=== PATIENT | female | born 1985 | race Caucasian/White ===

== ENCOUNTER 2016-02-16 11:45 | Observation (INO) | payer MEDICAID ==
[~2016-02-16] VITALS: Ht 162.6 cm; Wt 77.5 kg
[2016-02-16] VITALS (9 sets, daily range): BP systolic 100–149; BP diastolic 61–88; PULSE 63–115; RESP 14–18; TEMP 97.9–98.1; O2SAT 96–100
[~2016-02-16 11:45] MED LIST: CIPR0.3S RIGHT EAR; DULE200A INH; EPIP0.3I IM; FLUT1SPR9 EACH NARE; GEOD80CA PO; MIRA33504 PO; PROT40TA PO; VIST50CA PO
[2016-02-16] MEDS ORDERED: SODIUM CHLOR 0.9% 1000 ML INJ 1,000 ML IV SCH (12:07)
--- NOTE | 2016-02-16 12:12 | PD ---
HPI Chief Complaint: Abdominal Pain Time Seen by Provider: 12:03 Travel History International Travel<30 days: No Contact w/Intl Traveler<30days: No Traveled to known affect area: No History of Present Illness HPI 30-year-old female complains of right upper quadrant abdominal pain. Patient states that the pain started 2 days ago. Patient states the pain is sharp severe pain localized to right upper quadrant of the abdomen. Patient denies any pain radiation. Patient denies any nausea vomiting diarrhea. Patient denies any fever chills. Patient denies any dysuria or frequency. Patient denies any vaginal discharge or bleeding. On a scale of 1-10 the pain is a 5. PFSH Past Medical History Hx Anticoagulant Therapy: No Asthma: Yes Blood Disorders: No Bipolar Disorder: Yes Depression: Yes Cancer: No Cardiovascular Problems: No Chemotherapy: No Cerebrovascular Accident: No Diabetes: No Diminished Hearing: No Endocrine: No Gastrointestinal Disorders: No Genitourinary: No Headaches: No Immune Disorder: No Musculoskeletal: No Psychiatric: Yes Respiratory: No Immunizations Current: Yes Migraines: No Seizures: No Menopausal: No : 1 Para: 1 Tubal Ligation: Yes Past Surgical History Abdominal Surgery: No Cardiac Surgery: No Ear Surgery: No Endocrine Surgery: No Eye Surgery: No Genitourinary Surgery: No Gynecologic Surgery: Yes (TUBAL LIGATION MARCH 2008) Hysterectomy: No Neurologic Surgery: Yes (hydrocephalus/shunt-revised 2006) Oral Surgery: No Thoracic Surgery: No Other Surgery: Yes Social History Alcohol Use: No Tobacco Use: Yes (states 2 cigarette per day) Substance Use: No Allergies-Medications (Allergen,Severity, Reaction): Coded Allergies: Doxycycline (Verified Allergy, Severe, NAUSEA/rash, 02/16/16) Bactrim (Verified Adverse Reaction, Severe, N/V Rash, 02/16/16) Penicillin (Verified Adverse Reaction, Severe, EMESIS/Rash, 02/16/16) Reported Meds & Prescriptions Reported Meds & Active Scripts Active Protonix (Pantoprazole Sodium) 40 Mg Tab 40 Mg PO DAILY Reported Geodon (Ziprasidone) 80 Mg Cap 80 Mg PO HS Vistaril (Hydroxyzine Pamoate) 50 Mg Cap 50 Mg PO HS Review of Systems General / Constitutional: No: Fever Eyes: No: Visual changes HENT: No: Headaches Cardiovascular: No: Chest Pain or Discomfort Respiratory: No: Shortness of Breath Gastrointestinal: Positive: Abdominal Pain Genitourinary: No: Dysuria Musculoskeletal: No: Pain Skin: No Rash Neurologic: No: Weakness Psychiatric: No: Depression Endocrine: No: Polydipsia Hematologic/Lymphatic: No: Easy Bruising Physical Exam Narrative GENERAL: Well-nourished, well-developed patient. SKIN: Warm and dry. HEAD: Normocephalic. EYES: No scleral icterus. No injection or drainage. NECK: Supple, trachea midline. No JVD or lymphadenopathy. CARDIOVASCULAR: Regular rate and rhythm without murmurs, gallops, or rubs. RESPIRATORY: Breath sounds equal bilaterally. No accessory muscle use. GASTROINTESTINAL: Abdomen soft, nondistended. Patient has moderate tenderness on palpation right upper quadrant of the abdomen. No rebound tenderness. No mass. MUSCULOSKELETAL: No cyanosis, or edema. BACK: Nontender without obvious deformity. No CVA tenderness. Neurologic exam normal. Data Data Last Documented VS Vital Signs Date Time Temp Pulse Resp B/P Pulse Ox O2 Delivery O2 Flow Rate FiO2 02/16/16 13:00 68 17 112/69 02/16/16 12:00 96 02/16/16 11:46 98.1 Room Air Orders Complete Blood Count With Diff (02/16/16 12:07) Comprehensive Metabolic Panel (02/16/16 12:07) Lipase (02/16/16 12:07) Prothrombin Time / Inr (Pt) (02/16/16 12:07) Act Partial Throm Time (Ptt) (02/16/16 12:07) Urinalysis - C+S If Indicated (02/16/16 12:07) Ct Abd/Pel W Iv Contrast(Rout) (02/16/16 12:07) Iv Access Insert/Monitor (02/16/16 12:07) Ecg Monitoring (02/16/16 12:07) Oximetry (02/16/16 12:07) Morphine Inj (Morphine Inj) (02/16/16 12:15) Ondansetron Inj (Zofran Inj) (02/16/16 12:15) Pantoprazole Inj (Protonix Inj) (02/16/16 12:15) Sodium Chlor 0.9% 1000 Ml Inj (Ns 1000 M (02/16/16 12:07) Ed Urine Pregnancytest Poc (02/16/16 12:07) Iohexol 350 Inj (Omnipaque 350 Inj) (02/16/16 14:12) Labs Laboratory Tests Test 02/16/16 12:00 White Blood Count 9.1 TH/MM3 Red Blood Count 5.17 MIL/MM3 Hemoglobin 15.9 GM/DL Hematocrit 45.8 % Mean Corpuscular Volume 88.6 FL Mean Corpuscular Hemoglobin 30.8 PG Mean Corpuscular Hemoglobin 34.8 % Concent Red Cell Distribution Width 12.2 % Platelet Count 348 TH/MM3 Mean Platelet Volume 8.4 FL Neutrophils (%) (Auto) 69.3 % Lymphocytes (%) (Auto) 23.6 % Monocytes (%) (Auto) 5.3 % Eosinophils (%) (Auto) 1.4 % Basophils (%) (Auto) 0.4 % Neutrophils # (Auto) 6.3 TH/MM3 Lymphocytes # (Auto) 2.2 TH/MM3 Monocytes # (Auto) 0.5 TH/MM3 Eosinophils # (Auto) 0.1 TH/MM3 Basophils # (Auto) 0.0 TH/MM3 CBC Comment DIFF FINAL Differential Comment Urine Color LIGHT-YELLOW Urine Turbidity HAZY Urine pH 6.5 Urine Specific [place] 1.004 Urine Protein NEG mg/dL Urine Glucose (UA) NEG mg/dL Urine Ketones NEG mg/dL Urine Occult Blood SMALL Urine Nitrite NEG Urine Bilirubin NEG Urine Urobilinogen LESS THAN 2.0 MG/DL Urine Leukocyte Esterase SMALL Urine RBC 3 /hpf Urine WBC 3 /hpf Urine Squamous Epithelial 4 /hpf Cells Urine Amorphous Sediment RARE Urine Bacteria RARE /hpf Microscopic Urinalysis Comment CULT NOT INDICATED Sodium Level 136 MEQ/L Potassium Level 4.5 MEQ/L Chloride Level 106 MEQ/L Carbon Dioxide Level 25.2 MEQ/L Anion Gap 5 MEQ/L Blood Urea Nitrogen 10 MG/DL Creatinine 0.88 MG/DL Estimat Glomerular Filtration 75 ML/MIN Rate Random Glucose 97 MG/DL Calcium Level 10.0 MG/DL Total Bilirubin 0.7 MG/DL Aspartate Amino Transf 50 U/L (AST/SGOT) Alanine Aminotransferase 37 U/L (ALT/SGPT) Alkaline Phosphatase 84 U/L Total Protein 8.8 GM/DL Albumin 4.6 GM/DL Lipase 64 U/L [facility] Medical Decision Making Medical Screen Exam Complete: Yes Emergency Medical Condition: Yes Interpretation(s) [address] scan abdomen pelvis show cholelithiasis. No evidence of cholecystitis cystitis. CBC within normal limit. CMP with AST 50. Differential Diagnosis Differential diagnosis including PUD, pancreatitis, cholecystitis, colitis, UTI , pyelonephritis, nephrolithiasis. Narrative Course 30-year-old female with right upper quadrant abdominal pain. Normal saline solution 1 25 cc an hour. Protonix 40 mg IV. Morphine 2 mg IV. Zofran 4 mg IV. Diagnosis Primary Impression: Cholelithiasis Qualified Code: K80.20 - Calculus of gallbladder without cholecystitis without obstruction Chris Cabral MD Feb 16, 2016 12:12
[2016-02-16] MEDS ORDERED: ONDANSETRON HCL 4 MG/2 ML VIAL IVP ONE (12:15)
[2016-02-16] MEDS ORDERED: MORPHINE SULFATE 4 MG/ML INJ IV PUSH ONE (12:15)
[2016-02-16] MEDS ORDERED: PANTOPRAZOLE SODIUM 40 MG VIAL IVP ONE (12:15)
[2016-02-16 12:39] LABS: BACTERIA, URINE RARE /hpf; BLOOD, URINE SMALL (NEG); GLUCOSE,URINE NEG (NEG); KETONE, URINE NEG (NEG); NITRITE,URINE NEG (NEG); PH, URINE 6.5 (5.0-8.5); SQUAMOUS EPITHELIAL CELL URINE 4 /hpf (0-5); URINE COLOR LIGHT-YELLOW (YELLW/STRAW)
[2016-02-16 12:42] LABS: COMMENT (UR) CULT NOT INDICATED; CULTURE IF INDICATED CULT NOT INDICATED
[2016-02-16 13:00] LABS: AUTOMATED NEUTROPHIL # 6.3 TH/MM3 (1.8-7.7); BASOPHIL % 0.4 % (0.0-2.0); EOSINOPHIL # 0.1 TH/MM3 (0-0.4); EOSINOPHIL % 1.4 % (0.0-4.0); HEMATOCRIT 45.8 % (35.0-46.0); HEMO FLAGS DIFF FINAL; LYMPH % 23.6 % (9.0-44.0); LYMPHOCYTE # 2.2 TH/MM3 (1.0-4.8); MEAN CELL VOLUME 88.6 FL (80.0-100.0); MEAN CORPUSCULAR HEMOGLOBIN 30.8 PG (27.0-34.0); MEAN CORPUSCULAR HGB CONC 34.8 % (32.0-36.0); MONO % 5.3 % (0.0-8.0); NEUT % 69.3 % (16.0-70.0); PLATELET COUNT 348 TH/MM3 (150-450); RED BLOOD COUNT 5.17 MIL/MM3 (4.00-5.30); RED CELL DISTRIBUTION WIDTH 12.2 % (11.6-17.2); WHITE BLOOD COUNT 9.1 TH/MM3 (4.0-11.0)
[2016-02-16 13:26] LABS: ALKALINE PHOSPHATASE 84 U/L (45-117); TOTAL BILIRUBIN ADULT 0.7 MG/DL (0.2-1.0)
[2016-02-16 13:31] LABS: ALT (GPT) 37 U/L (10-53); ANION GAP 5 MEQ/L (5-15); AST (GOT) 50 U/L (15-37); BICARBONATE 25.2 MEQ/L (21.0-32.0); BLOOD UREA NITROGEN 10 MG/DL (7-18); CHLORIDE 106 MEQ/L (98-107); GLOMERULAR FILTRATION RATE 75 ML/MIN (>89); SODIUM (NA) 136 MEQ/L (136-145)
[2016-02-16 13:34] LABS: POTASSIUM 4.5 MEQ/L (3.5-5.1)
[2016-02-16] MEDS ORDERED: IOHEXOL 350 MG/ML 10 ML VIAL (for RAD DIAG) IV ONE (14:12)
--- NOTE | 2016-02-16 14:37 | RADRPT ---
EXAM DATE/TIME: 02/16/2016 14:09 [place] COMPARISON: No previous studies available for comparison. INDICATIONS : Right upper quadrant pain x 2 days. IV CONTRAST: 93 cc Omnipaque 350 (iohexol) IV ORAL CONTRAST: No oral contrast ingested. RADIATION DOSE: 7.08 CTDIvol (mGy) MEDICAL HISTORY : Hydrocephalus. Asthma. SURGICAL HISTORY : Tubal ligation. AV Shunt. ENCOUNTER: Initial ACUITY: 3 days PAIN SCALE: 5/10 LOCATION: Right upper quadrant TECHNIQUE: Volumetric scanning of the abdomen and pelvis was performed. Using automated exposure control and ad justment of the mA and/or kV according to patient size, radiation dose was kept as low as reasonably achievable to obtain optimal diagnostic quality images. FINDINGS: LOWER LUNGS: The visualized lower lungs are clear. LIVER: Homogeneous density without lesion. There is no dilation of the biliary tree. The gallbladder is con tracted around multiple stones within the bladder lumen. No evidence of wall thickening or adjacent f luid.SPLEEN: Normal size without lesion. PANCREAS: Within normal limits. KIDNEYS: Normal in size and shape. There is no mass, stone or hydronephrosis. ADRENAL GLANDS: Within normal limits. VASCULAR: There is no aortic aneurysm. BOWEL/MESENTERY: The stomach, small bowel, and colon demonstrate no acute abnormality. There is no free intraperitone al air or fluid. ABDOMINAL WALL: Within normal limits. There is tubing identified extending from the anterior abdominal wall to the pe lvis consistent with STEEL DIE ENGRAVER shunt. RETROPERITONEUM: There is no lymphadenopathy. BLADDER: No wall thickening or mass. REPRODUCTIVE: Within normal limits. INGUINAL: There is no lymphadenopathy or hernia. MUSCULOSKELETAL: Within normal limits for patient age. CONCLUSION: Cholelithiasis. No CT evidence of cholecystitis.. Mesha Roberts MD on February 16, 2016 at 14:32 Board Certified Radiologist. This report was verified electronically.
[2016-02-16] MEDS ORDERED: SODIUM CHLORIDE 0.9% FLUSH 5 ML FLUSH IV FLUSH PRN (17:30)
[2016-02-16] MEDS ORDERED: ONDANSETRON HCL 4 MG/2 ML VIAL IV PUSH PRN (17:30)
[2016-02-16] MEDS ORDERED: ONDANSETRON HCL 4 MG/2 ML VIAL IV PRN (17:30)
[2016-02-16] MEDS ORDERED: SODIUM CHLORIDE 0.9% FLUSH 5 ML FLUSH IVF PRN (17:30)
[2016-02-16] MEDS ORDERED: ACETAMINOPHEN 325 MG TAB PO PRN (17:30)
[2016-02-16] MEDS: SODIUM CHLOR 0.9% 1000 ML INJ 1,000 ML IV SCH (19:56)
[2016-02-16] MEDS: LEVOFLOXACIN 500 MG PREMIX INJ 100 ML IV SCH (19:56)
[2016-02-16] MEDS: metroNIDAZOLE 500 MG INJ 100 ML IV SCH (20:00)
[2016-02-16] MEDS: MORPHINE SULFATE 4 MG/ML INJ IV PUSH PRN (20:06)
[2016-02-16] MEDS ORDERED: SODIUM CHLORIDE 0.9% FLUSH 5 ML FLUSH IV FLUSH SCH (21:00)
[2016-02-16] MEDS: SODIUM CHLORIDE 0.9% FLUSH 5 ML FLUSH IVF SCH (21:00)
--- NOTE | 2016-02-16 23:11 | MH ---
cc: HAILEY YANG MD DATE OF ADMISSION: 02/16/2016 CHIEF COMPLAINT Symptomatic cholelithiasis, cholecystitis. HISTORY OF PRESENT ILLNESS The patient is a 30-year-old female who presents with right upper quadrant abdominal pain. She states the pain started approximately 2 days ago, sharp, localized to the right upper quadrant, 7 out of 10, improved with IV pain medications to 2 out of 10. She states she has never had this pain before. It is worse with palpation and better with lying still. She denies any associated nausea and vomiting or any fever or chills. She came to the emergency room for further evaluation and further workup. CT scan showed multiple gallbladder stones with some thickening. Therefore, general surgery was consulted for further evaluation. On examination the patient is resting comfortable. She says she does have significant right upper quadrant pain and reiterates that she has never had this before. She further denies jaundice, scleral icterus or change in bowel habits. PAST MEDICAL HISTORY Asthma, bipolar, depression, hydrocephalus. PAST SURGICAL HISTORY Tubal ligation, shunt for hydrocephalus. SOCIAL HISTORY Positive smoking two cigarettes per day. Denies ETOH or IVDA. ALLERGIES DOXYCYCLINE, BACTRIM, PENICILLIN. MEDICATIONS See EMR. FAMILY HISTORY Denies hypertension or diabetes. REVIEW OF SYSTEMS General: Denies fever, chills. HEENT: Denies eye pain, ear pain or scleral icterus. Cardiovascular: Denies chest pain or palpitations. Respiratory: Denies cough or shortness of breath. GI: Complains of abdominal pain. Denies nausea, vomiting. : Denies dysuria, hematuria. Musculoskeletal: Denies arthralgias, myalgias. Skin: Denies rashes or lesions. Neurologic: Denies weakness or numbness. Psychiatric: Denies change in sensorium or mood. Endocrine: Denies polyuria, polydipsia. : Denies dysuria, hematuria. Hematologic: Denies easy bruising or lymphadenopathy. PHYSICAL EXAMINATION General: The patient is in no acute distress. Vital signs: Temperature 98.1, pulse 68, respirations 17, blood pressure 112/69, 96% saturation on room air. HEENT: PERRLA, EOMI. No scleral icterus. Pupils equal, and reactive. Neck: Supple. Trachea midline. Cardiovascular: Regular rate and rhythm, S1-S2. Respiratory: Bilateral expansion. Bilateral breath sounds. GI: Soft abdomen. Positive tenderness to palpation right upper quadrant. No rebound. Musculoskeletal: No edema, well perfused, warm. Neurologic: GCS of 15, LABORATORY DIAGNOSTIC DATA WBC 9.1, hemoglobin 15.9, hematocrit 45.8, platelet count 348, sodium 136, potassium 4.5, chloride 106, CO2 25.2, BUN 10, creatinine 0.88. T bili 0.7, AST 50, ALT 37, alk phos 84, lipase 64. IMAGING STUDIES Reviewed by myself. CT of the abdomen and pelvis significant for cholelithiasis and multiple stones. ASSESSMENT The patient is a 30-year-old female presents to the emergency department with acute onset right upper quadrant pain, symptomatic cholelithiasis with cholecystitis. PLAN After full radiologic clinical laboratory workup, patient with above-named complaints including cholelithiasis, cholecystitis. PLAN Will admit the patient and keep n.p.o. after midnight. IV fluids, pain control, Zofran for nausea if needed. The patient will undergo laparoscopic cholecystectomy, possible open. This was discussed with the patient in detail. The patient stated understanding, agreed and would like to proceed with intervention. MD JASMINA Forbes/LIZZETH /8:58 PM /10:55 PM
[2016-02-16] MEDS: ZIPRASIDONE HCL 80 MG CAP PO SCH (23:18)
[2016-02-17] VITALS (8 sets, daily range): BP systolic 99–122; BP diastolic 54–73; PULSE 55–117; RESP 16–18; TEMP 97.3–97.9; O2SAT 96–98
[2016-02-17] MEDS: metroNIDAZOLE 500 MG INJ 100 ML IV SCH ×3 (03:29→19:30)
[2016-02-17] MEDS: SODIUM CHLOR 0.9% 1000 ML INJ 1,000 ML IV SCH ×2 (03:29→11:38)
[2016-02-17 07:47] LABS: PROTHROMBIN TIME - PATIENT 11.1 SEC (9.8-11.6)
[2016-02-17 07:48] LABS: AUTOMATED NEUTROPHIL # 3.5 TH/MM3 (1.8-7.7); BASOPHIL % 0.4 % (0.0-2.0); EOSINOPHIL # 0.2 TH/MM3 (0-0.4); EOSINOPHIL % 3.3 % (0.0-4.0); HEMATOCRIT 41.7 % (35.0-46.0); HEMO FLAGS DIFF FINAL; LYMPHOCYTE # 2.5 TH/MM3 (1.0-4.8); MEAN CELL VOLUME 89.9 FL (80.0-100.0); MEAN CORPUSCULAR HEMOGLOBIN 30.6 PG (27.0-34.0); NEUT % 51.3 % (16.0-70.0); PLATELET COUNT 279 TH/MM3 (150-450); RED BLOOD COUNT 4.64 MIL/MM3 (4.00-5.30); RED CELL DISTRIBUTION WIDTH 12.2 % (11.6-17.2); WHITE BLOOD COUNT 6.9 TH/MM3 (4.0-11.0)
[2016-02-17 08:03] LABS: ANION GAP 9 MEQ/L (5-15); AST (GOT) 18 U/L (15-37); BICARBONATE 24.2 MEQ/L (21.0-32.0); BLOOD UREA NITROGEN 13 MG/DL (7-18); CHLORIDE 109 MEQ/L (98-107); GLOMERULAR FILTRATION RATE 85 ML/MIN (>89); SODIUM (NA) 142 MEQ/L (136-145)
[2016-02-17 08:04] LABS: ALKALINE PHOSPHATASE 66 U/L (45-117); ALT (GPT) 30 U/L (10-53); TOTAL BILIRUBIN ADULT 0.6 MG/DL (0.2-1.0)
[2016-02-17] MEDS: PANTOPRAZOLE SODIUM 40 MG VIAL IV SCH (08:50)
[2016-02-17] MEDS: SODIUM CHLORIDE 0.9% FLUSH 5 ML FLUSH IVF SCH ×2 (08:50→22:58)
--- NOTE | 2016-02-17 11:09 | PD.CONS ---
HPI Service [facility] Consult Requested By Reason for Consult Medical management with history of hyperreactive airway disease, bipolar disorder Primary Care Physician FRED De Los Santos Diagnoses: History of Present Illness Patient is a very pleasant 30-year-old female who presented to the ER complaining of epigastric discomfort for the past 2 days associated with some nausea vomiting. No changes in bowel movements. Came to the emergency room and on evaluation noted cholelithiasis. Patient was promptly seen by general surgery and scheduled to have gallbladder surgery this afternoon[facility] of [facility] disorder, hyperreactive airway disease. Patient currently complains of epigastric discomfort relieved by pain medications. Denies any fever or chills nausea vomiting. Looking forward to surgery. With regards to her hyperreactive airway disease she was on metered-dose inhaler and has been off this and had no exacerbations for the past 5 years. Review of Systems Constitutional: DENIES: Fever, Weight loss, Chills, Change in appetite Eyes: DENIES: Blurred vision, Double Vision Ears, nose, mouth, throat: DENIES: Tinnitus, Ear Pain, Epistaxis, Odynophagia Respiratory: DENIES: Cough, Hemoptysis, Sputum production, Shortness of breath Cardiovascular: DENIES: Chest pain, Palpitations, Dyspnea on Exertion, Lower Extremity Edema, Orthopnea Gastrointestinal: DENIES: Black stools, Bloody stools, Difficulty Swallowing, Anorexia Genitourinary: DENIES: Urgency, Hematuria, Vaginal discharge Musculoskeletal: DENIES: Joint pain, Stiffness Integumentary: DENIES: Pruritus Hematologic/lymphatic: DENIES: Bruising Immunologic/allergic: DENIES: Urticaria Neurologic: DENIES: Headache, Speech Problems, Tremor Psychiatric: DENIES: Suicidal Ideation, Homicidal Ideation Past Family Social History Allergies: Coded Allergies: Doxycycline (Verified Allergy, Severe, NAUSEA/rash, 02/16/16) Bactrim (Verified Adverse Reaction, Severe, N/V Rash, 02/16/16) Penicillin (Verified Adverse Reaction, Severe, EMESIS/Rash, 02/16/16) Past Medical History History of bipolar disorder History of hyperreactive airway disease History of constipation relieved with [place] lax History of SNOWBOARDER shunt placement in 2008 Past Surgical History Brain procedure/SNOWBOARDER shunt in 1999 Reported Medications Rosaline Buckley Active Ordered Medications See EMR Family History Denies alcohol substance abuse or smoking Social History Denies alcohol substance abuse or smoking Physical Exam Vital Signs Vital Signs Date Time Temp Pulse Resp B/P Pulse Ox O2 Delivery O2 Flow Rate FiO2 02/17/16 09:00 Room Air 02/17/16 08:00 97.7 55 16 110/56 98 02/17/16 05:28 96 02/17/16 05:07 97.3 61 16 99/54 98 02/17/16 00:13 97.8 58 16 103/58 98 02/16/16 21:00 Room Air 02/16/16 20:40 97.9 63 16 111/64 96 02/16/16 20:07 82 18 100/61 100 02/16/16 18:30 98 21 02/16/16 18:00 86 17 110/76 02/16/16 17:00 82 17 116/70 02/16/16 15:00 72 17 120/88 97 Room Air 02/16/16 13:00 68 17 112/69 02/16/16 12:54 5 02/16/16 12:00 17 02/16/16 12:00 96 02/16/16 11:46 98.1 115 14 149/88 98 Room Air Physical Exam GENERAL: This is a well-nourished, well-developed patient, in no apparent distress. SKIN: No rashes, ecchymoses or lesions. Cool and dry. HEAD: Atraumatic. Normocephalic. No temporal or scalp tenderness. EYES: Pupils equal round and reactive. Extraocular motions intact. No scleral icterus. No injection or drainage. ENT: Nose without bleeding, purulent drainage or septal hematoma. Throat without erythema, tonsillar hypertrophy or exudate. Uvula midline. Airway patent. NECK: Trachea midline. No JVD or lymphadenopathy. Supple, nontender, no meningeal signs. CARDIOVASCULAR: Regular rate and rhythm without murmurs, gallops, or rubs. RESPIRATORY: Clear to auscultation. Breath sounds equal bilaterally. No wheezes , rales, or rhonchi. GASTROINTESTINAL: Abdomen soft, tenderness on palpation of the right upper quadrant area, well-healed scar on the epigastric area (from previous SNOWBOARDER shunt procedure MUSCULOSKELETAL: Extremities without clubbing, cyanosis, or edema. No joint tenderness, effusion, or edema noted. No calf tenderness. Negative Homans sign bilaterally. NEUROLOGICAL: Awake and alert. Cranial nerves II through XII intact. Motor and sensory grossly within normal limits. Five out of 5 muscle strength in all muscle groups. Normal speech. Laboratory Laboratory Tests Test 02/16/16 02/17/16 12:00 06:39 White Blood Count 9.1 6.9 Red Blood Count 5.17 4.64 Hemoglobin 15.9 14.2 Hematocrit 45.8 41.7 Mean Corpuscular Volume 88.6 89.9 Mean Corpuscular Hemoglobin 30.8 30.6 Mean Corpuscular Hemoglobin 34.8 34.0 Concent Red Cell Distribution Width 12.2 12.2 Platelet Count 348 279 Mean Platelet Volume 8.4 8.2 Neutrophils (%) (Auto) 69.3 51.3 Lymphocytes (%) (Auto) 23.6 36.0 Monocytes (%) (Auto) 5.3 9.0 Eosinophils (%) (Auto) 1.4 3.3 Basophils (%) (Auto) 0.4 0.4 Neutrophils # (Auto) 6.3 3.5 Lymphocytes # (Auto) 2.2 2.5 Monocytes # (Auto) 0.5 0.6 Eosinophils # (Auto) 0.1 0.2 Basophils # (Auto) 0.0 0.0 CBC Comment DIFF FINAL DIFF FINAL Differential Comment Urine Color LIGHT-YELLOW Urine Turbidity HAZY Urine pH 6.5 Urine Specific [place] 1.004 Urine Protein NEG Urine Glucose (UA) NEG Urine Ketones NEG Urine Occult Blood SMALL Urine Nitrite NEG Urine Bilirubin NEG Urine Urobilinogen LESS THAN 2.0 Urine Leukocyte Esterase SMALL Urine RBC 3 Urine WBC 3 Urine Squamous Epithelial 4 Cells Urine Amorphous Sediment RARE Urine Bacteria RARE Microscopic Urinalysis Comment CULT NOT INDICATED Sodium Level 136 142 Potassium Level 4.5 4.0 Chloride Level 106 109 Carbon Dioxide Level 25.2 24.2 Anion Gap 5 9 Blood Urea Nitrogen 10 13 Creatinine 0.88 0.79 Estimat Glomerular Filtration 75 85 Rate Random Glucose 97 87 Calcium Level 10.0 8.8 Total Bilirubin 0.7 0.6 Aspartate Amino Transf 50 18 (AST/SGOT) Alanine Aminotransferase 37 30 (ALT/SGPT) Alkaline Phosphatase 84 66 Total Protein 8.8 6.8 Albumin 4.6 3.4 Lipase 64 Prothrombin Time 11.1 Prothromb Time International 1.0 Ratio Activated Partial 27.0 Thromboplast Time Result Diagram: 02/17/16 0639 02/17/16 0639 Imaging Last Impressions Abdomen/Pelvis CT 02/16/16 1207 Signed Impressions: Service Date/Time: Tuesday, February 16, 2016 14:09 - CONCLUSION: Cholelithiasis. No CT evidence of cholecystitis.. Mesha Roberts MD Assessment and Plan Assessment and Plan 30-year-old female presenting with right upper quadrant pain Cholelithiasis patient scheduled for surgery this morning General surgery following History of bipolar disorder continue on Ina Waggoner postop Thank you for this consult we'll follow patient in-house with you. If discharge patient can follow up with her primary care physician Saranya Avelar MD Feb 17, 2016 11:09
[2016-02-17] MEDS ORDERED: ONDANSETRON HCL 4 MG/2 ML VIAL IV PUSH ONE (12:00)
[2016-02-17] MEDS ORDERED: LACTATED RINGER'S 1000 ML INJ 1,000 ML IV ONE (12:00)
[2016-02-17] MEDS ORDERED: NEOSTIGMINE 3 MG/3 ML SYR IV ONE (12:00)
[2016-02-17] MEDS ORDERED: PROPOFOL 200 MG/20 ML AMP IV ONE (12:00)
[2016-02-17] MEDS ORDERED: BUPIVACAINE/EPINEPHRINE 0.25% PF 30 ML VIAL ONE (16:55)
--- NOTE | 2016-02-17 17:14 | HHI.PR ---
Immediate Post Op Note Procedure Date: Feb 17, 2016 Pre Op Diagnosis: acute cholecystitis with cholelithiasis Post Op Diagnosis: same Surgeon: Jensen Rodriguez MD Clinical Project Assistant(s): see or sheet Procedure: lap verna Findings: distended gallbladder Complications: none Specimen(s) removed: gallbladder Estimated blood loss: 5cc Anesthesia: General Drains: None Patient to: PACU Patient Condition: Good Jensen Rodriguez MD Feb 17, 2016 17:14
[2016-02-17] MEDS ORDERED: BUPIVACAINE/EPINEPHRINE 0.25% PF 30 ML VIAL INFIL ONE (17:37)
[2016-02-17] MEDS ORDERED: CLINDAMYCIN PHOS 600 MG/4 ML VIAL ONE (17:38)
[2016-02-17] MEDS ORDERED: *MEPERIDINE 25 MG INJ VIAL PERIprocedural Use ONLY ONE (19:00)
[2016-02-17] MEDS ORDERED: DO NOT ADM ANY ANTICOAGULANT DRUGS XX PRN (19:01)
[2016-02-17] MEDS ORDERED: MIDAZOLAM HCL 2 MG/2 ML VIAL ONE (19:06)
[2016-02-17] MEDS ORDERED: fentaNYL CITRATE 250 MCG/5 ML AMP ONE (19:07)
[2016-02-17] MEDS ORDERED: *morphine SULFATE 8 MG/ML PERIprocedure ONLY ONE (19:23)
[2016-02-17] MEDS ORDERED: *ONDANSETRON 4 MG VIAL PERIprocedural Use ONLY ONE (19:29)
[2016-02-17] MEDS: LEVOFLOXACIN 500 MG PREMIX INJ 100 ML IV SCH (20:00)
[2016-02-17] MEDS ORDERED: oxyCODONE/ACETAMINOPHEN 5 MG/325 MG TAB PO PRN (20:00)
[2016-02-17] MEDS: MORPHINE SULFATE 4 MG/ML INJ IV PUSH PRN (22:55)
[2016-02-17] MEDS: ZIPRASIDONE HCL 80 MG CAP PO SCH (22:57)
[2016-02-18] VITALS: BP 123/96; PULSE 67; RESP 18; TEMP 97.5; O2SAT 96
[2016-02-18] MEDS: SODIUM CHLOR 0.9% 1000 ML INJ 1,000 ML IV SCH ×3 (02:32→12:02)
[2016-02-18] MEDS: metroNIDAZOLE 500 MG INJ 100 ML IV SCH ×2 (02:33→12:01)
[2016-02-18 04:00] VITALS: BP 122/72; PULSE 55; RESP 16; TEMP 98; O2SAT 95
[2016-02-18 08:00] VITALS: BP 121/64; PULSE 76; RESP 20; TEMP 98.1; O2SAT 97
[2016-02-18] MEDS: PANTOPRAZOLE SODIUM 40 MG VIAL IV SCH (08:10)
[2016-02-18] MEDS: SODIUM CHLORIDE 0.9% FLUSH 5 ML FLUSH IVF SCH (08:11)
--- NOTE | 2016-02-18 08:52 | MP ---
cc: HAILEY RODRIGUEZ MD DATE OF SURGERY 02/17/2016 PREOPERATIVE DIAGNOSIS Acute cholecystitis with cholelithiasis. POSTOPERATIVE DIAGNOSIS Acute cholecystitis with cholelithiasis. PROCEDURE PERFORMED Laparoscopic cholecystectomy. SURGEON Dr. Hailey Rodriguez PURCHASING AND FISCAL CLERK See OR sheet ANESTHESIA GETA. IV FLUIDS See anesthesia sheet. DRAINS None. COMPLICATIONS None. WOUND CLASSIFICATION Clean/contaminated. FINDINGS Contracted gallbladder, multiple gallstones. Gallstone at infundibular. Large cystic duct. SPECIMENS Gallbladder. INDICATION The patient is a 30-year-old female who presented with right upper quadrant pain. He was evaluated with CT scan showing multiple gallstones in the gallbladder. Decision made for laparoscopic cholecystectomy. Discussed with the patient in detail who understood and agreed to would like to proceed. DETAILS OF PROCEDURE The patient was taken to the operating suite, placed in supine position. She was prepped and draped in the usual sterile fashion after induction of general endotracheal anesthesia. A brief time-out was done stating the correct patient, procedure and surgical site. We were all in agreement with this. Attention was first directed to the umbilicus where a stab/joy incision was made with a 15 blade. Prior to this, injection with local anesthetic. The Veress needle was used, placed intraabdominally and confirmed placement with saline drop test. Abdomen insufflated to 50 mL pneumoperitoneum. Next, four other trocars placed, three 5's, one epigastric followed by two right subcostal done under direct visualization. The patient was then placed in reverse Trendelenburg and airplaned to the left. On inspection the anterior abdominal wall peritoneum, there was noted to be a fibrotic scar. The patient has a history of DIE STAMPER shunt and it appeared that the shunt was not patent and scarred in. Discussion with Dr. Steven neurosurgeon confirmed this finding. Next, the gallbladder was identified and noted to be contracted. Significant fatty plane noted as well. The cystic duct and cystic artery were dissected out with a [place] grasper. Two clips were placed proximal and one distal. The cystic artery was then clipped. The cystic duct was dissected out and noted be significantly enlarged. Therefore transitioned to dome-down approach done to mobilize the gallbladder. The gallbladder was mobilized and an Endoloop PDS 2-0 was obtained and ligated the cystic duct. Next, endoshears were used to cut the gallbladder from the cystic duct. The gallbladder was placed into EndoCatch bag. The gallbladder was removed from the abdomen. Suction irrigation was used. Next, hemostasis was obtained. Next, the abdomen was desufflated, ports removed. A [id number] 0 Vicryl was used to approximate the fascia to the umbilicus. Next, 4-0 Monocryl was used for subcuticular suture. Sterile dressings then placed, Mastisol and Steri-Strips. The patient tolerated procedure well. There was no intraoperative complication. The patient was taken stable to the PACU. MD JASMINA Forbes/GRABIEL /9:39 PM /8:34 AM
--- NOTE | 2016-02-18 09:43 | HHI.PR ---
Subjective Subjective Notes pt doing well, episode of vomiting yesterday better this am Objective Vitals/I&O Vital Signs Date Time Temp Pulse Resp B/P Pulse Ox O2 Delivery O2 Flow Rate FiO2 02/18/16 04:00 98.0 55 16 122/72 95 02/17/16 22:28 21 02/17/16 20:53 Room Air Cardiovascular: Regular Lungs: Clear Abdomen: Other (incisions with dressings c/d/i) Extremities: No edema A/P Assessment and Plan s/p lap verna pOD 1 plan OOB pain control dc ivf reg diet d/c home today Jensen Rodriguez MD Feb 18, 2016 09:43
[2016-02-18 11:02] VITALS: O2SAT 96
[2016-02-18 12:00] VITALS: BP 130/70; PULSE 67; RESP 20; TEMP 97.7; O2SAT 96
[2016-02-18 16:00] VITALS: BP 122/84; PULSE 76; RESP 20; TEMP 98.1; O2SAT 97
[2016-03-02] MEDS ORDERED: META48.53 PO (14:53)
[2016-03-15] MEDS ORDERED: PROT40TA PO (14:23)
[2016-05-17] MEDS ORDERED: FLUT50SP EACH NARE (08:42)
[2016-05-17] MEDS ORDERED: PANT40TA3 PO (08:42)
[2016-05-17] MEDS ORDERED: EPIN1INJ17 IM (08:57)
[2016-05-20] MEDS ORDERED: META48.53 PO (11:49)
[2016-05-20] MEDS ORDERED: PEGPOW2 PO (12:23)
[2016-06-18] MEDS ORDERED: ONDA4TAB7 SL (15:03)
[2016-06-18] MEDS ORDERED: PANT40TA3 PO (15:03)
[2016-06-28] MEDS ORDERED: DULE200A INH ×2 (08:38→08:39)
== END 2016-02-18 17:35 | disposition home or self-care (01) ==
LOC: NEPE 11:45 → INTOOBSV 17:18 → NEDH 17:18 → N04A 20:41 → N04B 02-17 17:07
PROVIDERS: ADMIT Internal Medicine; ATTEND Surgery
DX: K80.00 Calculus of gallbladder with acute cholecystitis without obstruction (principal); J45.909 Unspecified asthma, uncomplicated; F31.9 Bipolar disorder, unspecified; F17.210 Nicotine dependence, cigarettes, uncomplicated
CPT/HCPCS: 00790; 47562; 74177; 80053; 81001; 83690; 84703; 85025; 85610; 85730; 88304; 96365; 96375; 99285; C9113; G0378; J1956; J2175; J2250; J2270; J2405; J2710; J3010; J7030; J7120; Q9967

== ENCOUNTER 2016-05-07 13:57 | Observation (INO) | payer MEDICAID ==
[~2016-05-07] VITALS: Ht 162.6 cm; Wt 80.0 kg
[~2016-05-07 13:57] MED LIST changes: -CIPR0.3S RIGHT EAR; -DULE200A INH; -EPIP0.3I IM; -FLUT1SPR9 EACH NARE; +LACTATED RINGER'S 1000 ML INJ 1,000 ML IV ONE; +META48.53 PO; -MIRA33504 PO; +ONDANSETRON HCL 4 MG/2 ML VIAL IV PUSH ONE; +PROPOFOL 200 MG/20 ML AMP IV ONE; +ePHEDrine/NS 25 MG/5 ML SYR IV ONE
[2016-05-07 13:58] VITALS: BP 160/92; PULSE 116; RESP 20; TEMP 97.8; O2SAT 98
--- NOTE | 2016-05-07 16:11 | PD ---
HPI Chief Complaint: Neuro Symptoms/ Deficits Time Seen by Provider: 15:56 Travel History International Travel<30 days: No Contact w/Intl Traveler<30days: No Traveled to known affect area: No History of Present Illness HPI 30-year-old female complains of right-sided headache and photophobia. Patient has history of hydrocephalus status post CORPORATE LEGAL MANAGER shunt placement [address] Zaldivar. Patient started having right-sided headache 4 days ago. Patient states that the headache did pressure headache throbbing headache localized to right side the head. Patient denies any visual change. Patient states that she has photophobia. Patient denies any neck pain. Patient denies any chest pain or shortness of breath. Patient denies abdominal pain. Patient denies any nausea vomiting. Patient denies any focal weakness or numbness of extremity. Patient denies any recent head injury. On a scale of 1-10 the headache is a 9. PFSH Past Medical History Hx Anticoagulant Therapy: No Asthma: Yes Blood Disorders: No Bipolar Disorder: Yes Anxiety: No Depression: Yes Cancer: No Cardiovascular Problems: No Chemotherapy: No Cerebrovascular Accident: No Diabetes: No Diminished Hearing: No Endocrine: No Gastrointestinal Disorders: No Genitourinary: No Headaches: No Immune Disorder: No Musculoskeletal: No Neurologic: Yes (HYDROCEPHALUS AT 7 YEARS OLD) Psychiatric: Yes Reproductive: No Respiratory: No Immunizations Current: Yes Migraines: No Seizures: No ?: Not LMP: 04/27/16 Menopausal: No : 1 Para: 1 Tubal Ligation: Yes Past Surgical History Abdominal Surgery: No Body Medical Devices: says she has a shunt in brain Cardiac Surgery: No Ear Surgery: No Endocrine Surgery: No Eye Surgery: No Genitourinary Surgery: No Gynecologic Surgery: Yes (TUBAL LIGATION MARCH 2008) Hysterectomy: No Neurologic Surgery: Yes (hydrocephalus/shunt-revised 2006) Oral Surgery: No Thoracic Surgery: No Other Surgery: Yes Social History Alcohol Use: No Tobacco Use: Yes (states 2 cigarette per day) Substance Use: No Allergies-Medications (Allergen,Severity, Reaction): Coded Allergies: Doxycycline (Verified Allergy, Severe, NAUSEA/rash, 03/02/16) Bactrim (Verified Adverse Reaction, Severe, N/V Rash, 03/02/16) Penicillin (Verified Adverse Reaction, Severe, EMESIS/Rash, 03/02/16) Reported Meds & Prescriptions Reported Meds & Active Scripts Active Protonix (Pantoprazole Sodium) 40 Mg Tab 40 Mg PO DAILY Reported Metamucil Original Texture (Psyllium Hydrophilic Mucilloid) 48.57 % Pow 1 Scoop PO TID PRN 1 rounded TEASPOON in 8 oz of liquid at the first sign of irregularity. Geodon (Ziprasidone) 80 Mg Cap 80 Mg PO HS Vistaril (Hydroxyzine Pamoate) 50 Mg Cap 50 Mg PO HS Review of Systems General / Constitutional: No: Fever Eyes: Positive: Photophobia, No: Visual changes HENT: Positive: Headaches Cardiovascular: No: Chest Pain or Discomfort Respiratory: No: Shortness of Breath Gastrointestinal: No: Abdominal Pain Genitourinary: No: Dysuria Musculoskeletal: No: Pain Skin: No Rash Neurologic: No: Weakness Psychiatric: No: Depression Endocrine: No: Polydipsia Hematologic/Lymphatic: No: Easy Bruising Physical Exam Narrative GENERAL: Well-nourished, well-developed patient. SKIN: Focused skin assessment warm/dry. HEAD: Normocephalic. EYES: No scleral icterus. No injection or drainage. Pupils 3 mm equal reactive. Fundi benign. NECK: Supple, trachea midline. No JVD or lymphadenopathy. CARDIOVASCULAR: Regular rate and rhythm without murmurs, gallops, or rubs. RESPIRATORY: Breath sounds equal bilaterally. No accessory muscle use. GASTROINTESTINAL: Abdomen soft, non-tender, nondistended. MUSCULOSKELETAL: No cyanosis, or edema. BACK: Nontender without obvious deformity. No CVA tenderness. Neurologic exam: Patient is awake and alert oriented 3. No obvious focal neurological deficit. Data Data Last Documented VS Vital Signs Date Time Temp Pulse Resp B/P Pulse Ox O2 Delivery O2 Flow Rate FiO2 05/07/16 13:58 97.8 116 20 160/[address] Brain W/O Iv Contrast(Rout) (05/07/16 16:03) Shunt Series (05/07/16 ) MDM Medical Decision Making Medical Screen Exam Complete: Yes Emergency Medical Condition: Yes Differential Diagnosis Differential diagnosis including tension headache, cluster headache, migraine headache, shunt malfunction. Narrative Course 30-year-old female with right-sided headache and photophobia. History of hydrocephalus status post CORPORATE LEGAL MANAGER shunt placement 2008. Chris Cabral MD May 07, 2016 16:11
--- NOTE | 2016-05-07 16:54 | RADRPT ---
EXAM DATE/TIME: 05/07/2016 16:18 [facility] COMPARISON: SHUNT SERIES, September 01, 2014, 11:08. INDICATIONS : Headache on right side of head. MEDICAL HISTORY : Hydrocephalus. SURGICAL HISTORY : AV shunt. ENCOUNTER: Initial ACUITY: 4 - 6 days PAIN SCORE: 5/10 LOCATION: Shunt series. FINDINGS: The distal portion of the shunt is fractured similar to what was seen on 09/01/14. The proximal portion of the shunt appears intact. CONCLUSION: Fractured distal shunt as described previously. Cristian Orlando MD FACR on May 07, 2016 at 16:44 Board Certified Radiologist. This report was verified electronically.
--- NOTE | 2016-05-07 16:55 | RADRPT ---
EXAM DATE/TIME: 05/07/2016 16:23 [facility] COMPARISON: CT BRAIN W/O CONTRAST, May 07, 2013, 16:19. INDICATIONS : Cephalgia with history of hydrocephalus and TOBACCO PRIZER shunt. RADIATION DOSE: 56.35 CTDIvol (mGy) MEDICAL HISTORY : Hydrocephalus. SURGICAL HISTORY : TOBACCO PRIZER Shunt ENCOUNTER: Initial ACUITY: 1 day PAIN SCALE: 8/10 LOCATION: Cranial TECHNIQUE: Multiple contiguous axial images were obtained of the head. Using automated exposure control and adjustment of the mA and/or kV according to patient size, radiation dose was kept as low as reasonably achievable to obtain optimal diagnostic quality images. FINDINGS: The patient has a ventricular peritoneal shunt in place with significant ventricular di latation when compared to 05/07/13, the most recent comparison. This would be consistent with a nonf unctioning shunt. Posterior fossa is unremarkable. CONCLUSION: Nonfunctioning shunt. Cristian Orlando MD FACR on May 07, 2016 at 16:38 Board Certified Radiologist. This report was verified electronically.
--- NOTE | 2016-05-07 17:50 | PD ---
Data Data Last Documented VS Vital Signs Date Time Temp Pulse Resp B/P Pulse Ox O2 Delivery O2 Flow Rate FiO2 05/07/16 13:58 97.8 116 20 160/[address] Brain W/O Iv Contrast(Rout) (05/07/16 16:03) Shunt Series (05/07/16 ) Complete Blood Count With Diff (05/07/16 17:30) Basic Metabolic Panel (Bmp) (05/07/16 17:30) Act Partial Throm Time (Ptt) (05/07/16 17:30) Prothrombin Time / Inr (Pt) (05/07/16 17:30) Electrocardiogram (05/07/16 ) Place In Observation (05/07/16 ) Vital Signs (Adult) Q4H (05/07/16 17:56) Neuro Checks Q4H (05/07/16 17:56) Activity Oob With Assistance (05/07/16 17:56) Diet Regular Basic (05/07/16 Dinner) Sodium Chloride 0.9% Flush (Ns Flush) (05/07/16 18:00) Sodium Chloride 0.9% Flush (Ns Flush) (05/07/16 21:00) Acetaminophen (Tylenol) (05/07/16 18:00) Ondansetron Inj (Zofran Inj) (05/07/16 18:00) Magnesium Hydroxide Liq (Milk Of Magnesi (05/07/16 18:00) Basic Metabolic Panel (Bmp) (05/08/16 06:00) Complete Blood Count With Diff (05/08/16 06:00) Prothrombin Time / Inr (Pt) (05/08/16 06:00) Resp Oxygen Alonzo C Titrat 1-4 L (05/07/16 ) Pt Request For Service (05/07/16 17:56) Scd Bilateral/Knee High KALIN.BID (05/07/16 17:56) Naloxone Inj (Narcan Inj) (05/07/16 18:00) Admit Order (Ed Use Only) (05/07/16 17:55) Consult Neurosurgery (05/07/16 ) MDM Medical Record Reviewed: Yes Supervised Visit with NERISSA: No Narrative Course Please see previous providers note: The patient was signed out to me by Dr. Cabral. Pending call back from IR and neurosurgery (Dr. Zaldivar) and admission to hospital. 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 Zaldivar. Patient reports that for the past 4 days, she has had a right sided frontal headache. Reports that headache feels like a "pressure" to my head." Patient here for evaluation of headache and shunt. Patient had a CT scan of her head as well as [id number] performed today, patient has a non-functioning shunt and what appears to be a fracture to the distal part of her shunt. Case assessment IR, request neurosurgery evaluation and treatment for this Dr. Zaldivar aware Will admit to medicine service Case reviewed with Dr. Curry who accepts pt to service Dr. Zaldivar in ER evaluating patient, will go to OR now for MAINTENANCE SHOP TECHNICIAN shunt malfunction Diagnosis Primary Impression: Nonfunctioning ventricular shunt Qualified Code: T85.01XA - Nonfunctioning ventricular shunt, initial encounter Additional Impression: Headache Qualified Code: R51 - Nonintractable headache, unspecified chronicity pattern , unspecified headache type Admitting Information Admitting Physician Requests: Observation Blanca Thao DO May 07, 2016 17:50
--- NOTE | 2016-05-07 17:57 | HHI.HP ---
[facility] FRED De Los Santos Admission Diagnosis Diagnoses: Travel History International Travel<30 Days: No Contact w/Intl Traveler <30 Da: No Traveled to Known Affected Are: No Past Family Social History Allergies: Coded Allergies: Doxycycline (Verified Allergy, Severe, NAUSEA/rash, 03/02/16) Bactrim (Verified Adverse Reaction, Severe, N/V Rash, 03/02/16) Penicillin (Verified Adverse Reaction, Severe, EMESIS/Rash, 03/02/16) Physical Exam Vital Signs Vital Signs Date Time Temp Pulse Resp B/P Pulse Ox O2 Delivery O2 Flow Rate FiO2 05/07/16 13:58 97.8 116 20 160/92 98 Room Air Physical Exam GENERAL: This is a well-nourished, well-developed patient, in no apparent distress. SKIN: No rashes, ecchymoses or lesions. Cool and dry. HEAD: Atraumatic. Normocephalic. No temporal or scalp tenderness. EYES: Pupils equal round and reactive. Extraocular motions intact. No scleral icterus. No injection or drainage. ENT: Nose without bleeding, purulent drainage or septal hematoma. Throat without erythema, tonsillar hypertrophy or exudate. Uvula midline. Airway patent. NECK: Trachea midline. No JVD or lymphadenopathy. Supple, nontender, no meningeal signs. CARDIOVASCULAR: Regular rate and rhythm without murmurs, gallops, or rubs. RESPIRATORY: Clear to auscultation. Breath sounds equal bilaterally. No wheezes , rales, or rhonchi. GASTROINTESTINAL: Abdomen soft, non-tender, nondistended. No hepato-splenomegaly , or palpable masses. No guarding. MUSCULOSKELETAL: Extremities without clubbing, cyanosis, or edema. No joint tenderness, effusion, or edema noted. No calf tenderness. Negative Homans sign bilaterally. NEUROLOGICAL: Awake and alert. Cranial nerves II through XII intact. Motor and sensory grossly within normal limits. Five out of 5 muscle strength in all muscle groups. Normal speech. Goldie Curry DO May 07, 2016 5:57 pm
[2016-05-07] MEDS ORDERED: MAGNESIUM HYDROXIDE SUSP 30 ML CUP PO PRN ×2 (18:00→20:30)
[2016-05-07] MEDS ORDERED: SODIUM CHLORIDE 0.9% FLUSH 10 ML FLUSH IV FLUSH PRN ×3 (18:00→20:30)
[2016-05-07] MEDS ORDERED: ONDANSETRON HCL 4 MG/2 ML VIAL IVP PRN (18:00)
[2016-05-07] MEDS ORDERED: NALOXONE HCL 0.4 MG/ML AMP IV PRN (18:00)
[2016-05-07] MEDS ORDERED: ACETAMINOPHEN 325 MG TAB PO PRN ×2 (18:00→20:30)
[2016-05-07] MEDS ORDERED: GENTAMICIN SULFATE 80 MG/2 ML VIAL ONE (18:38)
[2016-05-07] MEDS ORDERED: GELFOAM SIZE 100 ONE (18:38)
[2016-05-07] MEDS ORDERED: THROMBIN (TOPICAL) 5,000 UNIT VIAL ONE (18:38)
[2016-05-07] MEDS ORDERED: VANCOMYCIN HCL 1000 MG VIAL ONE (19:28)
[2016-05-07] MEDS ORDERED: SODIUM CHLOR 0.9% 250 ML INJ 250 ML ONE (19:29)
--- NOTE | 2016-05-07 20:25 | PD.OP ---
Operative Report Date of Surgery: May 07, 2016 Preoperative Diagnosis: Hydrocephalus with CHIEF AIRPORT GUIDE shunt malfunction Postoperative Diagnosis: Same Procedure: Right ventriculoperitoneal shunt distal revision Anesthesia: Gen. endotracheal by Alana Sheth Surgeon: Emeka Zaldivar M.D. Head Trimmer(s): June Romero Operation and Findings: Following immunization of general endotracheal anesthesia patient had a Manning catheter placed and a gram of vancomycin was administered intravenously. Sequential compression devices also placed for DVT prophylaxis. Right frontal parieto-occipital and anterior chest and abdomen area was shaved and prepped with ChloraPrep and sterilely draped with Ioban along the usual sterile draping. An incision overlying the clavicle where the distal peritoneal tubing could be palpated was infiltrated with 0.5% Marcaine with epinephrine solution and the skin incision made until the tubing identified. Subsequently the previous abdominal incision site was also infiltrated with local anesthetics and the incision made extending down to the fascia but could not identify any peritoneal catheter which had apparently broken off into the peritoneum. The distal portion of the catheter was then pulled out from the anterior clavicle area incision and good CSF outflow was noted with the functional proximal shunt ventricular catheter and valve apparently. The distal end was cut and then connected to bactiseal peritoneal catheter with a straight connector and secured with 2-0 silk ties. And then attention turned to the abdominal incision site where a tunnel between the clavicle incision and the abdominal incision was undertaken with the collar and the peritoneal catheter pulled through. The anterior rectus sheath was incised and then the muscle fibers split and the posterior rectus sheath also incised along with the underlying peritoneal wall and the peritoneal contents were identified. A 3-0 silk stitch was placed around peritoneal opening and the peritoneal catheter was then dropped into the peritoneum with good distal CSF outflow first confirmed. The pursestring stitch was then tied and the areas of thoroughly irrigated with anabolic solution. The anterior tissues was an apart using 3-0 Vicryl Sutures and then 3-0 Vicryl septic residual space in an interrupted fashion and final skin closure was with Mastisol and Steri-Strips. Similarly the anterior clavicle area region was then also irrigated with antibiotic solution and 3-0 Vicryl subcuticular stitch is placed in an interrupted fashion and final skin closure was with Mastisol and Steri-Strips. Sterile dressings were then applied. Patient was then extubated and taken to the recovery room. There were known drug complications and all sponge and needle count was correct at the end of the procedure. Estimated blood loss less than 10 cc. Emeka Zaldivar MD May 07, 2016 20:25
[2016-05-07] MEDS: NS + KCL 20 MEQ INJ 1,000 ML IV SCH (20:29)
[2016-05-07] MEDS ORDERED: ALUMINUM/MAGNESIUM/SIMETH 30 ML CUP PO PRN (20:30)
[2016-05-07] MEDS ORDERED: ACETAMINOPHEN/HYDROcodone 325 MG/10 MG TAB PO PRN ×2 (20:30)
[2016-05-07] MEDS ORDERED: MORPHINE SULFATE 4 MG/ML INJ IV PRN (20:30)
[2016-05-07] MEDS ORDERED: cloNIDine HCL 0.1 MG TAB PO PRN (20:30)
[2016-05-07] MEDS ORDERED: MENTHOL LOZENGE BUCCAL PRN (20:30)
[2016-05-07] MEDS ORDERED: POTASSIUM CHLOR 20 MEQ PREMIX 100 ML IV PRN (20:30)
[2016-05-07] MEDS ORDERED: METOCLOPRAMIDE HCL 10 MG/2 ML VIAL IVS PRN (20:30)
[2016-05-07] MEDS ORDERED: MAGNESIUM SULFATE INJ 2 GM in SODIUM CHLORIDE 0.9% INJ 100 ML IV PRN (20:30)
[2016-05-07] MEDS ORDERED: ZOLPIDEM TARTRATE 5 MG TAB PO PRN (20:30)
[2016-05-07] MEDS ORDERED: VANCOMYCIN INJ 1,000 MG in SODIUM CHLOR 0.9% 250 ML INJ 250 ML IV SCH (20:30)
[2016-05-07] MEDS ORDERED: RESP: ALBUTEROL 2.5 MG/3 ML NEB (PRN) NEB (20:30)
[2016-05-07] MEDS ORDERED: *MEPERIDINE 25 MG INJ VIAL PERIprocedural Use ONLY ONE (20:32)
[2016-05-07] MEDS ORDERED: fentaNYL CITRATE 250 MCG/5 ML AMP ONE (20:38)
[2016-05-07] MEDS ORDERED: SUGAMMADEX SODIUM 200 MG/2 ML VIAL IV PUSH ONE ×2 (20:40)
[2016-05-07] MEDS ORDERED: CALCIUM GLUCONATE INJ 1 GM in SODIUM CHLORIDE 0.9% INJ 100 ML IV PRN (21:00)
[2016-05-07] MEDS: DOCUSATE SODIUM 100 MG CAP PO SCH (21:00)
[2016-05-07] MEDS ORDERED: DO NOT ADM ANY ANTICOAGULANT DRUGS PRN (21:00)
[2016-05-07] MEDS ORDERED: SODIUM CHLORIDE 0.9% FLUSH 10 ML FLUSH IV FLUSH SCH ×2 (21:00)
[2016-05-07] MEDS ORDERED: *HYDROmorphone PF 1 MG VIAL PERIprocedural Use ONLY ONE (21:04)
--- NOTE | 2016-05-07 21:23 | MB ---
cc: JAZ ELLIOTT ROHIT DATE OF CONSULTATION 05/07/16 REASON FOR CONSULTATION Hydrocephalus with FORESTRY TREE PRUNER shunt malfunction. HISTORY OF PRESENT ILLNESS A 30-year-old female with a history of hydrocephalus and underwent right frontal ventriculoperitoneal shunt placement with a Delta one valve in 2008. She relates for the past five days she has had headaches and some photophobia but denies any nausea or vomiting or any other neurologic symptoms in particular. She had acute cholecystitis with cholelithiasis and a laparoscopic cholecystectomy on February 17, 2016. At that point, the surgery was noted that FORESTRY TREE PRUNER shunt entry site was scarred down with likely disconnected peritoneal catheter. Dr. Steven from neurosurgery was consulted and he did not recommend any treatment for this. The patient was ultimately discharged and scheduled to follow up with Dr. Steven, but she relates that she was referred to him but has not had an appointment. She presented to the emergency room today after she called his office and was informed that he was gone for the day. The last time I had seen the patient was in July of 2013 and subsequently we had recommended shuntogram also when shunt study in August of 2014 revealed break of the distal portion of the peritoneal catheter. The patient states that she has not followed through with this shuntogram order as she had other family issues and the father was diagnosed with cancer that she was dealing with. Workup today included a CT scan of the head which reveals moderate ventriculomegaly which has increased in size since the last CT scan from April of 2013. There is a right frontal ventricular shunt tubing catheter in good position. A shunt study again revealed fracture of the shunt in the pelvic area with no connection to the chest portion of the shunt. PAST MEDICAL HISTORY 1. Asthma 2. Bipolar disorder, 3. Depression, 4. Hydrocephalus with FORESTRY TREE PRUNER shunt placement almost eight years ago, 5. Cholecystectomy three months ago, 6. Tubal ligation MEDICATIONS 1. Metamucil,. 2. Geodon 80 mg q.h.s. 3. Vistaril 50 mg q.h.s. 4. Protonix 40 mg daily. ALLERGIES PENICILLIN BACTRIM DOXYCYCLINE SOCIAL HISTORY She is , smokes two cigarettes per day. Denies alcohol use. Works as a service cleaner. REVIEW OF SYSTEMS Complains of headaches and pressure sensation in the head for the past four or five days. Complains of photophobia, although no blurred vision or double vision. Denies any chest pain or shortness of breath. Denies any nausea or vomiting. Denies any numbness or paresthesias in the upper or lower extremities. No history of easy bleeding or bruising. No fevers or chills. No recent weight gain or weight loss. LABORATORY DATA Laboratory studies are pending. PHYSICAL EXAMINATION VITAL SIGNS: Temperature 97.8, pulse is 116, respiratory 20, blood pressure 160/92, ox saturation 98% on room air. HEAD: Normocephalic, atraumatic. Right shunt valve reservoir refill well is nontender. CHEST: Clear to auscultation bilaterally HEART: Regular rate and rhythm. ABDOMEN: There is some bloating which she states She has had since her surgery but is getting better. The cholecystectomy puncture sites are healed. No guarding or rigidity noted. NEUROLOGIC: She is awake, alert. Pupils are equal, reactive. Extraocular muscles are intact. Face is symmetric. She moves all four extremities with 5/5 strength. Normal sensation, symmetric reflexes. Negative Babinski. Speech is fluent. IMPRESSION Hydrocephalus with FORESTRY TREE PRUNER shunt malfunction in the distal peritoneal tubing is fractured from the subcutaneous portion. PLAN We will proceed with ventriculoperitoneal shunt revision. The procedure along with the risks and benefits involved have been discussed and she is familiar with the procedure and understands these. She is requesting that we proceed and accordingly we will undertake this this evening. MD KAUSHAL Hodgson/ /6:47 PM /9:09 PM
[2016-05-07 22:00] LABS: AUTOMATED NEUTROPHIL # 10.8 TH/MM3 (1.8-7.7); BASOPHIL % 0.2 % (0.0-2.0); EOSINOPHIL % 0.3 % (0.0-4.0); HEMATOCRIT 40.1 % (35.0-46.0); HEMO FLAGS DIFF FINAL; LYMPH % 7.9 % (9.0-44.0); LYMPHOCYTE # 0.9 TH/MM3 (1.0-4.8); MEAN CELL VOLUME 89.6 FL (80.0-100.0); MEAN CORPUSCULAR HEMOGLOBIN 30.2 PG (27.0-34.0); MEAN CORPUSCULAR HGB CONC 33.7 % (32.0-36.0); MONO % 1.3 % (0.0-8.0); NEUT % 90.3 % (16.0-70.0); PLATELET COUNT 264 TH/MM3 (150-450); RED BLOOD COUNT 4.48 MIL/MM3 (4.00-5.30); RED CELL DISTRIBUTION WIDTH 12.9 % (11.6-17.2); WHITE BLOOD COUNT 11.9 TH/MM3 (4.0-11.0)
[2016-05-07 22:19] LABS: ANION GAP 8 MEQ/L (5-15); BICARBONATE 23.5 MEQ/L (21.0-32.0); BLOOD UREA NITROGEN 11 MG/DL (7-18); CHLORIDE 107 MEQ/L (98-107); GLOMERULAR FILTRATION RATE 85 ML/MIN (>89); SODIUM (NA) 138 MEQ/L (136-145)
[2016-05-07 22:30] LABS: BHCG SCREEN QUALITATIVE LESS THAN 1 MIU/ML (0-5)
[2016-05-07 22:45] VITALS: BP 108/66; PULSE 91; RESP 18; TEMP 96; O2SAT 98
[2016-05-07] MEDS: SODIUM CHLORIDE 0.9% FLUSH 10 ML FLUSH IV FLUSH SCH (23:29)
[2016-05-08] VITALS: BP 110/69; PULSE 82; RESP 18; TEMP 96.3; O2SAT 97
[2016-05-08 04:00] VITALS: BP 114/72; PULSE 82; RESP 18; TEMP 96.3; O2SAT 99
[2016-05-08] MEDS: NS + KCL 20 MEQ INJ 1,000 ML IV SCH (05:39)
[2016-05-08] MEDS ORDERED: VANCOMYCIN INJ 1,000 MG in SODIUM CHLOR 0.9% 250 ML INJ 250 ML IV SCH (08:00)
[2016-05-08 08:04] LABS: PROTHROMBIN TIME - PATIENT 10.8 SEC (9.8-11.6)
[2016-05-08 08:13] LABS: BICARBONATE 17.8 MEQ/L (21.0-32.0); POTASSIUM 4.2 MEQ/L (3.5-5.1)
[2016-05-08 08:14] VITALS: BP 104/61; PULSE 90; RESP 16; TEMP 96.4; O2SAT 97
[2016-05-08] MEDS: DOCUSATE SODIUM 100 MG CAP PO SCH (08:35)
[2016-05-08] MEDS: SODIUM CHLORIDE 0.9% FLUSH 10 ML FLUSH IV FLUSH SCH (08:35)
[2016-05-08 08:50] LABS: APTT (PATIENT) 25.9 SEC (24.3-30.1)
[2016-05-08] MEDS ORDERED: PANTOPRAZOLE SOD 40 MG DELAYED RELEASE TAB PO SCH (09:00)
[2016-05-08 09:57] LABS: AUTOMATED NEUTROPHIL # 8.8 TH/MM3 (1.8-7.7); BASOPHIL % 0.4 % (0.0-2.0); HEMATOCRIT 38.3 % (35.0-46.0); HEMO FLAGS DIFF FINAL; LYMPH % 8.6 % (9.0-44.0); LYMPHOCYTE # 0.9 TH/MM3 (1.0-4.8); MEAN CELL VOLUME 89.6 FL (80.0-100.0); MEAN CORPUSCULAR HEMOGLOBIN 31.5 PG (27.0-34.0); MEAN CORPUSCULAR HGB CONC 35.1 % (32.0-36.0); MONO % 2.9 % (0.0-8.0); NEUT % 88.1 % (16.0-70.0); PLATELET COUNT 274 TH/MM3 (150-450); RED BLOOD COUNT 4.27 MIL/MM3 (4.00-5.30); RED CELL DISTRIBUTION WIDTH 12.9 % (11.6-17.2); WHITE BLOOD COUNT 9.9 TH/MM3 (4.0-11.0)
--- NOTE | 2016-05-08 10:16 | HHI.NSPN ---
History Chief Complaint: Feeling "much better" s/p distal WASHHOUSE WORKER shunt revision Interval History A 30-year-old female with a history of hydrocephalus and underwent right frontal ventriculoperitoneal shunt placement with a Delta one valve in 2008. She relates for the past five days she has had headaches and some photophobia but denies any nausea or vomiting or any other neurologic symptoms in particular. She had acute cholecystitis with cholelithiasis and a laparoscopic cholecystectomy on February 17, 2016. At that point, the surgery was noted that WASHHOUSE WORKER shunt entry site was scarred down with likely disconnected peritoneal catheter. Dr. Steven from neurosurgery was consulted and he did not recommend any treatment for this. The patient was ultimately discharged and scheduled to follow up with Dr. Steven, but she relates that she was referred to him but has not had an appointment. She presented to the emergency room today after she called his office and was informed that he was gone for the day. The last time I had seen the patient was in July of 2013 and subsequently we had recommended shuntogram also when shunt study in August of 2014 revealed break of the distal portion of the peritoneal catheter. The patient states that she has not followed through with this shuntogram order as she had other family issues and the father was diagnosed with cancer that she was dealing with. Workup today included a CT scan of the head which reveals moderate ventriculomegaly which has increased in size since the last CT scan from April of 2013. There is a right frontal ventricular shunt tubing catheter in good position. A shunt study again revealed fracture of the shunt in the pelvic area with no connection to the chest portion of the shunt. 05/08: Pt awake and alert. States she is feeling much better. No headaches. No nausea or vomiting. States she wants to go home. Mild incisional discomfort. Review of Systems General: Negative for: fever, chills, insomnia Respiratory: Negative for: shortness of breath, cough, sputum Cardiovascular: Negative for: chest pain Gastrointestinal: Negative for: nausea, vomitting, diarrhea, constipation Exam Results Vital Signs Date Time Temp Pulse Resp B/P Pulse Ox O2 Delivery O2 Flow Rate FiO2 05/08/16 08:14 96.4 90 16 104/61 97 3/31/17 21:45 Nasal Cannula 3 Intake and Output 05/07/16 05/07/16 05/08/16 08:00 16:00 00:00 Intake Total 1350 ml Output Total 310 ml Balance 1040 ml Physical Examination Resp: CTA bilaterally Heart: NSR no murmurs Abd: Soft positive bs Skin: Incisions clean and dry. New bandages placed. No signs of infection Muscle: Pt awake and alert. States she is ambulating independently. Neuro: Pt awake and alert. Follows commands well. Speech clear and appropriate. Pupils equal. Lab, Micro, Other Results Last Impressions Head CT 05/07/16 1603 Signed Impressions: Service Date/Time: Saturday, May 07, 2016 16:23 - CONCLUSION: Nonfunctioning shunt. Cristian Orlando MD FACR Shunt Study (Imaging) 05/07/16 0000 Signed Impressions: Service Date/Time: Saturday, May 07, 2016 16:18 - CONCLUSION: Fractured distal shunt as described previously. Cristian Orlando MD FACR Laboratory Tests Test 05/07/16 05/08/16 05/08/16 21:45 07:18 09:15 White Blood Count 11.9 TH/MM3 9.9 TH/MM3 Red Blood Count 4.48 MIL/MM3 4.27 MIL/MM3 Hemoglobin 13.5 GM/DL 13.4 GM/DL Hematocrit 40.1 % 38.3 % Mean Corpuscular Volume 89.6 FL 89.6 FL Mean Corpuscular Hemoglobin 30.2 PG 31.5 PG Mean Corpuscular Hemoglobin 33.7 % 35.1 % Concent Red Cell Distribution Width 12.9 % 12.9 % Platelet Count 264 TH/MM3 274 TH/MM3 Mean Platelet Volume 8.2 FL 8.5 FL Neutrophils (%) (Auto) 90.3 % 88.1 % Lymphocytes (%) (Auto) 7.9 % 8.6 % Monocytes (%) (Auto) 1.3 % 2.9 % Eosinophils (%) (Auto) 0.3 % 0.0 % Basophils (%) (Auto) 0.2 % 0.4 % Neutrophils # (Auto) 10.8 TH/MM3 8.8 TH/MM3 Lymphocytes # (Auto) 0.9 TH/MM3 0.9 TH/MM3 Monocytes # (Auto) 0.2 TH/MM3 0.3 TH/MM3 Eosinophils # (Auto) 0.0 TH/MM3 0.0 TH/MM3 Basophils # (Auto) 0.0 TH/MM3 0.0 TH/MM3 CBC Comment DIFF FINAL DIFF FINAL Differential Comment Sodium Level 138 MEQ/L 138 MEQ/L Potassium Level 4.0 MEQ/L 4.2 MEQ/L Chloride Level 107 MEQ/L 109 MEQ/L Carbon Dioxide Level 23.5 MEQ/L 17.8 MEQ/L Anion Gap 8 MEQ/L 11 MEQ/L Blood Urea Nitrogen 11 MG/DL 8 MG/DL Creatinine 0.79 MG/DL 0.61 MG/DL Estimat Glomerular Filtration 85 ML/MIN 115 ML/MIN Rate Random Glucose 132 MG/DL 108 MG/DL Calcium Level 8.9 MG/DL 9.0 MG/DL Beta HCG, Qualitative LESS THAN 1 MIU/ML Prothrombin Time 10.8 SEC Prothromb Time International 1.0 RATIO Ratio Activated Partial 25.9 SEC Thromboplast Time 05/07/16 05/07/16 05/08/16 15:00 23:00 07:00 Intake Total 1350 ml 100 ml Output Total 310 ml Balance 1040 ml 100 ml Intake Oral 100 ml IV Total 350 ml Other 1000 ml Output Urine Total 300 ml Estimated Blood Loss 10 ml Other 0 ml Medical Decision Making Impression and Plan A: 30 y/o FM s/p distal WASHHOUSE WORKER shunt revision P: Discharge pt home Keep incisions clean and dry. Discussed restrictions. Isidro Maxwell May 08, 2016 10:16
--- NOTE | 2016-05-08 10:25 | HHI.DCPOC ---
Discharge Care Plan Diagnosis: (1) TEAM DRIVER (ventriculoperitoneal) shunt status (2) Headache Goals to Promote Your Health * To prevent worsening of your condition and complications * To maintain your health at the optimal level Directions to Meet Your Goals Take your medications as prescribed Follow your dietary instruction Follow activity as directed Keep your appointments as scheduled Take your immunizations and boosters as scheduled If your symptoms worsen call your PCP, if no PCP go to Urgent Care Center or Emergency Room Smoking is Dangerous to Your Health. Avoid second hand smoke Call the 24-hour hour crisis hotline for domestic abuse at Gregor Anderson DO May 08, 2016 10:25
--- NOTE | 2016-05-08 10:32 | HHI.HP ---
[facility] FRED De Los Santos Admission Diagnosis Diagnoses: (1) BUILDING MAINTENANCE SUPERVISOR (ventriculoperitoneal) shunt status Diagnosis: Principal (2) Headache Diagnosis: Principal Chief Complaint: Headache Travel History International Travel<30 Days: No Contact w/Intl Traveler <30 Da: No Traveled to Known Affected Are: No History of Present Illness The patient is a 30-year-old female with a past medical history of hydrocephalus who presented to the hospital with a severe right-sided headache. The patient says she was diagnosed with hydrocephalus at the age of 4 and she had a BUILDING MAINTENANCE SUPERVISOR shunt placed in 2008. The patient started experiencing pain in her shoulder area starting on Tuesday. She said she had significant pain on the right side of her head at the site of her BUILDING MAINTENANCE SUPERVISOR shunt. The patient said that the pains kept building up and on Tuesday it became horrible. She said the pain was located to the shunt area. She said she was taking Drummond for pain control and that seemed to help. She did say that bright lights made the headache worse. She denies any nausea. She denies any chest pain or shortness of breath. She has been having regular bowel movements. She denies any dysuria. She denies any fever. She was taken by neurosurgery for BUILDING MAINTENANCE SUPERVISOR shunt revision on 05/07/16. She is feeling well right now and wants to go home. Review of Systems Except as stated in HPI: all other systems reviewed are Neg Past Family Social History Past Medical History Hydrocephalus BUILDING MAINTENANCE SUPERVISOR shunt placement Cholecystectomy Allergies: Coded Allergies: Doxycycline (Verified Allergy, Severe, NAUSEA/rash, 03/02/16) Bactrim (Verified Adverse Reaction, Severe, N/V Rash, 03/02/16) Penicillin (Verified Adverse Reaction, Severe, EMESIS/Rash, 03/02/16) Active Ordered Medications Current Medications Medications (Trade) Dose Ordered Sig/Brittani Route Start Time Stop Time Status Last Admin (NS Flush) 2 ml UNSCH PRN IV FLUSH 05/07/16 18:00 (NS Flush) 2 ml BID IV FLUSH 05/07/16 21:00 05/07/16 23:29 (Tylenol) 650 mg Q4H PRN PO 05/07/16 18:00 (Zofran Inj) 4 mg Q6H PRN IVP 05/07/16 18:00 Naloxone HCl 0.4 mg 0.4 mg UNSCH PRN IV 05/07/16 18:00 (Vancomycin Inj/ NS 250 ml Inj) 250 ml @ 250 mls/hr Q12H IV 05/08/16 08:00 05/08/16 20:59 05/08/16 08:36 (Colace) 100 mg BID PO 05/07/16 21:00 (Milk Of Magnesia Liq) 30 ml DAILY PRN PO 05/07/16 20:30 (Mag-Al Plus Susp Liq) 30 ml Q6H PRN PO 05/07/16 20:30 (Protonix) 40 mg DAILY PO 05/08/16 09:00 05/08/16 08:39 Metoclopramide HCl 10 mg 10 mg Q8H PRN IVS 05/07/16 20:30 Calcium Gluconate 1 gm/Sodium Chloride 110 ml @ 110 mls/hr UNSCH PRN IV 05/07/16 21:00 Potassium Chloride 100 ml @ 50 mls/hr UNSCH PRN IV 05/07/16 20:30 (Magnesium Sulfate Inj/NS Inj) 104 ml @ 100 mls/hr UNSCH PRN IV 05/07/16 20:30 (Drummond 10-325 Mg) 1 tab Q4H PRN PO 05/07/16 20:30 (Drummond 10-325 Mg) 2 tab Q4H PRN PO 05/07/16 20:30 (Morphine Inj) 4 mg Q2H PRN IV 05/07/16 20:30 (Catapres) 0.1 mg Q6H PRN PO 05/07/16 20:30 (Tylenol) 650 mg Q4H PRN PO 05/07/16 20:30 ([place]) 1 lozenge UNSCH PRN BUCCAL 05/07/16 20:30 (Ambien) 5 mg HS PRN PO 05/07/16 20:30 Miscellaneous Information ALL NURSING DEPARTME... UNSCH PRN .XX 05/07/16 21:00 05/08/16 20:59 Family History The patient denies pertinent family history. Social History The patient does not smoke, drink or use illicit drugs. Physical Exam Vital Signs Vital Signs Date Time Temp Pulse Resp B/P Pulse Ox O2 Delivery O2 Flow Rate FiO2 05/08/16 08:14 96.4 90 16 104/61 97 05/08/16 04:00 96.3 82 18 114/72 99 05/08/16 00:00 96.3 82 18 110/69 97 05/07/16 22:45 96.0 91 18 108/66 98 05/07/16 21:45 98.2 98 16 125/77 96 Nasal Cannula 3 05/07/16 21:30 101 24 124/79 94 Nasal Cannula 3 05/07/16 21:15 98 17 129/79 96 Nasal Cannula 3 05/07/16 21:00 101 16 126/80 96 Nasal Cannula 3 05/07/16 20:45 110 17 148/81 97 Nasal Cannula 3 05/07/16 20:30 111 22 138/83 97 Nasal Cannula 3 05/07/16 20:29 98.0 112 16 148/78 99 Nasal Cannula 3 05/07/16 13:58 97.8 116 20 160/92 98 Room Air Physical Exam GENERAL: This is a well-nourished, well-developed patient, in no apparent distress. SKIN: No rashes, ecchymoses or lesions. Cool and dry. HEAD: BUILDING MAINTENANCE SUPERVISOR shunt on right side. EYES: Pupils equal round and reactive. Extraocular motions intact. No scleral icterus. No injection or drainage. ENT: Nose without bleeding, purulent drainage or septal hematoma. Throat without erythema, tonsillar hypertrophy or exudate. Uvula midline. Airway patent. NECK: Trachea midline. No JVD or lymphadenopathy. Supple, nontender, no meningeal signs. CARDIOVASCULAR: Regular rate and rhythm without murmurs, gallops, or rubs. RESPIRATORY: Clear to auscultation. Breath sounds equal bilaterally. No wheezes , rales, or rhonchi. GASTROINTESTINAL: Abdomen soft, non-tender, nondistended. No hepato-splenomegaly , or palpable masses. No guarding. MUSCULOSKELETAL: Bandage on chest. Extremities without clubbing, cyanosis, or edema. No joint tenderness, effusion, or edema noted. NEUROLOGICAL: Awake and alert. Cranial nerves II through XII intact. Motor and sensory grossly within normal limits. Five out of 5 muscle strength in all muscle groups. Normal speech. PSYCH: Mood and affect appropriate. Laboratory Laboratory Tests Test 05/07/16 05/08/16 05/08/16 21:45 07:18 09:15 White Blood Count 11.9 9.9 Red Blood Count 4.48 4.27 Hemoglobin 13.5 13.4 Hematocrit 40.1 38.3 Mean Corpuscular Volume 89.6 89.6 Mean Corpuscular Hemoglobin 30.2 31.5 Mean Corpuscular Hemoglobin 33.7 35.1 Concent Red Cell Distribution Width 12.9 12.9 Platelet Count 264 274 Mean Platelet Volume 8.2 8.5 Neutrophils (%) (Auto) 90.3 88.1 Lymphocytes (%) (Auto) 7.9 8.6 Monocytes (%) (Auto) 1.3 2.9 Eosinophils (%) (Auto) 0.3 0.0 Basophils (%) (Auto) 0.2 0.4 Neutrophils # (Auto) 10.8 8.8 Lymphocytes # (Auto) 0.9 0.9 Monocytes # (Auto) 0.2 0.3 Eosinophils # (Auto) 0.0 0.0 Basophils # (Auto) 0.0 0.0 CBC Comment DIFF FINAL DIFF FINAL Differential Comment Sodium Level 138 138 Potassium Level 4.0 4.2 Chloride Level 107 109 Carbon Dioxide Level 23.5 17.8 Anion Gap 8 11 Blood Urea Nitrogen 11 8 Creatinine 0.79 0.61 Estimat Glomerular Filtration 85 115 Rate Random Glucose 132 108 Calcium Level 8.9 9.0 Beta HCG, Qualitative LESS THAN 1 Prothrombin Time 10.8 Prothromb Time International 1.0 Ratio Activated Partial 25.9 Thromboplast Time Result Diagram: 05/08/16 0915 05/08/16 0718 Imaging Last Impressions Head CT 05/07/16 1603 Signed Impressions: Service Date/Time: Saturday, May 07, 2016 16:23 - CONCLUSION: Nonfunctioning shunt. Cristian Orlando MD FACR Shunt Study (Imaging) 05/07/16 0000 Signed Impressions: Service Date/Time: Saturday, May 07, 2016 16:18 - CONCLUSION: Fractured distal shunt as described previously. Cristian Orlando MD FACR Assessment and Plan Assessment and Plan BUILDING MAINTENANCE SUPERVISOR shunt malfunction The pt developed a severe headache at the location of the BUILDING MAINTENANCE SUPERVISOR shut. Neurosurgery was consulted and the pt is s/p right ventriculoperitoneal shunt distal revision 05/07. The pt is currently asymptomatic and cleared for discharge by neurosurgery. - discharge home. - wound care and dressing changes per neurosurgery. - outpt follow up with neurosurgery. - pain control as needed. - encourage ambulation. - ADAT. - follow up with PCP. - resume home meds. PPx: Per neurosurgery. Discussed Condition With Pt, Gregor Tee DO May 08, 2016 10:32
--- NOTE | 2016-05-08 12:22 | RADRPT ---
EXAM DATE/TIME: 05/08/2016 11:43 [place] COMPARISON: SHUNT SERIES, May 07, 2016, 16:18. CT BRAIN W/O CONTRAST, May 07, 2016, 16:23. INDICATIONS : Post op shunt revision. RADIATION DOSE: 49.42 CTDIvol (mGy) MEDICAL HISTORY : Hydrocephalus. SURGICAL HISTORY : Shunt. ENCOUNTER: Initial ACUITY: 1 day PAIN SCALE: 0/10 LOCATION: Cranial TECHNIQUE: Multiple contiguous axial images were obtained of the head. Using automated exposure control and adjustment of the mA and/or kV according to patient size, radiation dose was kept as low as reasonably achievable to obtain optimal diagnostic quality images. FINDINGS: There has been interval decrease in the ventricular size. There is no parenchymal hemorrhage. The posterior fossa is unremarkable. There are no extra-axial fluid collections appreciated. CONCLUSION: Interval decrease in the size of the ventricles. Cristian Orlando MD FACR on May 08, 2016 at 12:13 Board Certified Radiologist. This report was verified electronically.
[2016-05-08 12:33] VITALS: O2SAT 97
[2016-05-17] MEDS ORDERED: PANT40TA3 PO (08:42)
[2016-05-17] MEDS ORDERED: FLUT50SP EACH NARE (08:42)
[2016-05-17] MEDS ORDERED: EPIN1INJ17 IM (08:57)
[2016-05-20] MEDS ORDERED: META48.53 PO (11:49)
[2016-05-20] MEDS ORDERED: PEGPOW2 PO (12:23)
[2016-06-18] MEDS ORDERED: PANT40TA3 PO (15:03)
[2016-06-18] MEDS ORDERED: ONDA4TAB7 SL (15:03)
[2016-06-28] MEDS ORDERED: DULE200A INH ×2 (08:38→08:39)
== END 2016-05-08 13:42 | disposition home or self-care (01) ==
LOC: HOR 13:57 → NEDA 17:59 → UNDOADMOB 17:59 → N05A 22:26 → NEDA 22:26 → UNDODISOB 05-08 13:42
PROVIDERS: ADMIT Hospitalist; ATTEND Hospitalist
DX: T85.01XA Breakdown (mechanical) of ventricular intracranial (communicating) shunt, initial encounter (principal); G91.9 Hydrocephalus, unspecified; J45.909 Unspecified asthma, uncomplicated; F31.9 Bipolar disorder, unspecified; F17.210 Nicotine dependence, cigarettes, uncomplicated
CPT/HCPCS: 00220; 62230; 70250; 70450; 71010; 72040; 74000; 80048; 84703; 85025; 85610; 85730; 94150; 97161; 99285; G0378; J1170; J1580; J2175; J2405; J3010; J3370; J3480; J7050; J7120